=== PATIENT | female | born 1930 | race Caucasian/White ===

== ENCOUNTER 2016-04-24 14:36 | Observation (INO) | payer MEDICARE, OTHER ==
[2016-04-24 15:23] LABS: Urine Bilirubin Negative (NEGATIVE); Urine Blood 250 /ul (NEGATIVE); Urine Ketone Negative (NEGATIVE); Urine Protein 15 mg/dL (NEGATIVE); Urine Specific Gravity 1.025 SP.GR. (1.005-1.010); Urine Urobilinogen Normal (NORMAL)
[2016-04-24 15:36] LABS: Urine Appearance Clear; Urine Bacteria 2+; Urine Color Yellow; Urine Nitrite Positive (NEGATIVE); Urine WBC 0-5 /hpf (0-5)
[2016-04-24] MEDS ORDERED: NORMAL SALINE 1,000 ML IV PRN ×2 (17:41→21:37)
[2016-04-24] MEDS ORDERED: CLONIDINE HCL 0.1 MG TABLET PO ONE (17:43)
--- NOTE | 2016-04-24 17:43 | ERNOTE ---
Medical Problem HPI - Narrative Date of Service: 04/24/16 - General Chief Complaint: General Assessment Time Seen by Provider: 04/24/16 17:34 Source: patient, family, RN notes reviewed Exam Limitations: other - Altered Mental Status - Immun/Allergies/Home Medications Immunizations: IMMUNIZATION HX Immunizations Up to Date Yes History of Influenza Vaccine Yes Hx Pneumococcal Vaccination Yes Allergies/Adverse Reactions: Allergies orange juice Allergy (Mild, Verified 04/25/16 03:20) Hives Sulfa (Sulfonamide Antibiotics) Allergy (Verified 04/25/16 03:20) acetaminophen [From Tylenol] Adverse Reaction (Verified 04/25/16 03:20) Home Medications: HOME MEDICATIONS Bumetanide [Bumex] 1 mg PO DAILY PRN 04/24/16 [Last Taken Unknown] DULoxetine HCL [Cymbalta] 20 mg PO DAILY 04/24/16 [Last Taken Unknown] Levothyroxine Sodium [Synthroid] 150 mcg PO DAILY 04/24/16 [Last Taken Unknown] Losartan/Hydrochlorothiazide [Hyzaar 50-12.5 Tablet] 1 each PO DAILY 04/24/16 [ Last Taken Unknown] Tramadol HCl [Rybix Odt] 50 mg PO Q6H PRN 04/24/16 [Last Taken Unknown] - History of Present History Narrative: Patient was reported with Altered Mental Status, confusion and not able to communicate since at least 24hrs. Patient was reported with elevated blood pressure. Patient also reported a lower abdominal pain. Timing: constant, getting worse Severity: moderate Modifying Factors - (Improves): Present: other - Nothing Modifying Factors - (Worsens): Present: other - Nothing Review of Systems - Review of Systems Constitutional: Present: weakness, decreased activity level, other - Confusion EYE: Present: no symptoms reported ENT: Present: no symptoms reported Respiratory: Absent: cough Cardiology: Present: no symptoms reported Gastrointestinal/Abdominal: Present: abdominal pain Genitourinary: Present: frequency, hematuria Musculoskeletal: Present: muscle pain Skin: Present: no symptoms reported. Absent: rash Neurological: Present: weakness, other - Altered Mental Status - Patient's Past Medical History Patient History - Medical: Hypothyroidism Patient History - Cancer: No Hx of Cancer Patient History - Surgical Procedures: Tubal Ligation, Other - Social History Smoking Status: Never smoker Have you smoked in the past 12 months: No Do you dip or chew tobacco: No Alcohol Use: none Drug Use: none Physical Exam - Physical Exam General Appearance: Present: wd/wn, alert, no apparent distress Eye Exam: Normal inspection: bilateral, PERRL: bilateral, EOMI: bilateral Ears, Nose, Throat: Present: normal ENT inspection, hearing grossly normal, normal pharynx Neck: Present: normal inspection, nontender Respiratory: Present: no respiratory distress, normal breath sounds, no accessory muscle use, chest nontender, lungs clear Cardiovascular/Chest: Present: regular rate, rhythm, normal peripheral pulses, systolic murmur Gastrointestinal/Abdominal: Present: normal bowel sounds, nontender, nondistended, soft, no organomegaly. 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 Absent: disoriented to person, disoriented to place, disoriented to situation Skin Exam: Present: normal color, warm/dry. Absent: jaundice, skin rash Lymphatic Exam: Present: no adenopathy ED Progress - Date and Time Seen: Date and Time: 04/24/16 19:15 Patient who was reported with AMS, Abd. Pain, Hematuria, and was found with elevated WBC and +UA for UTI. Patient has been given antibiotics and is pending for reports of CT. Case will be consulted to Hospitalist. 04/24/16 19:36 GCS: 15/15 Patient is with family now is more alert and oriented. Patient now knows were she is and is more aware of her environment and events. Family agreed that patient was altered and confused. Patient was informed that she has a UTI and Tx with antibiotics and hydration is needed. Patient BP has been managed at the moment. - Results and Orders Patient's Lab Results:: I have reviewed the patient's lab results. Results and Orders: Patient found with elevated WBC and +UA for bacteria - Vital Signs Patient's Vital Signs:: I have reviewed the patient's vital signs. Vital Signs: Vital Signs 04/24/16 14:58 Temperature 35.7 C L Pulse Rate 93 Respiratory 14 Rate Blood Pressure 199/123 O2 Sat by Pulse 97 Oximetry - EKG EKG: NSR, no ST T wave changes EKG read: Interp. by me EKG Comments: HR: 88, No ST Elevations, LAD, RBBB incomplete - X-Ray X-Ray #1 X-Ray: chest Interpretation: Interp. by me X-ray Comments: No infiltrates and no consolidates seen on film. - CT/Ultrasound CT/Ultrasound Narrative: Time: 19:14: No blood, no shifting pending radiologist report Final Radiology Report was noticed. No acute intra cranial processes were reported. - Progress/Reassessment Chief Complaint: General Assessment Departure - Departure Clinical Impression: SIRS (systemic inflammatory response syndrome), Altered level of consciousness UTI (urinary tract infection) Qualifiers: Urinary tract infection type: acute cystitis Hematuria presence: with hematuria Qualified Code(s): N30.01 - Acute cystitis with hematuria Disposition: [facility] Condition: Fair
[2016-04-24 17:56] LABS: Hematocrit 45.5 % (37.0-47.0); Hemoglobin 15.3 gm/dL (12.5-16.0); Mean Cell Volume 90.5 fl (78-100); Mean Corpuscular Hemoglobin 30.4 pg (27-31); Mean Corpuscular Hgb Conc 33.6 g/dl (32-36); Mean Platelet Volume 10.3 fl (6.0-9.5); Neutrophil # 11.1 K/mm3 (1.3-6.0); Platelet Count 228 K/mm3 (150-450); Red Blood Count 5.03 M/mm3 (4.2-5.4); Red Cell Distribution Width 13.8 % (11.5-14.0)
[2016-04-24 18:12] LABS: ALT 30 U/L (19-67); AST 27 U/L (0-48); Albumin * 3.2 gm/dl (3.4-5.0); Alkaline Phosphatase * 78 U/L (50-170); Anion Gap 13.6 mmol/L (6.8-13.8); BUN/Creatinine Ratio 15.6 (9.0-21.6); Bilirubin, Total 0.4 mg/dL (0.0-1.1); Blood Urea Nitrogen 24 mg/dL (3-23); Ca. Corrected For Albumin 9.9 mg/dL (8.4-10.2); Calcium * 9.6 mg/dL (7.9-10.9); Carbon Dioxide 25.7 mmol/L (24-32.6); Chloride 104 mmol/L (97-106); Glucose * 129 mg/dL (70-110); Potassium 4.3 mmol/L (3.4-4.6); Sodium 139 mmol/L (132-142); Total Protein 8.2 gm/dL (6.2-8.2); Troponin I Less than 0.017 ng/ml (0.00-0.10)
[2016-04-24] MEDS ORDERED: CLONIDINE HCL 0.1 MG TABLET ONE (18:35)
[2016-04-24] MEDS ORDERED: NORMAL SALINE 1,000 ML IV ONE (20:15)
--- NOTE | 2016-04-24 21:57 | HP ---
Chief Complaint - Chief Complaint Date of Service: 04/24/16 Time of Service: 21:49 Chief Complaint: "Abdominal Pain, Back pain, Blood in Urine". Source of HPI- Pt ; unreliable, ER provider report. History of Present Illness: Mrs. Chaudhari is a 86-yr-old WF pt who normally sees KAROLINE Vieira in [place]. Pt does not appear to be a precise historian and she is unsure how she ended up in the hospital. Apparently pt 's spouse receives dialysis at the [facility] and he had an appointment today. Spouse is unable to drive and so the pt is the one who drove him down here for his appt. While her spouse was going through dialysis, pt felt the need to be checked out in the ER as she had not been Feeling well. She reported having abdominal pain, back pain and noting blood in urine yesterday. While awaiting further evaluation, she begun getting confused and her BP was noted to be elevated as well. The CXR obtained did not have any acute findings. However, the UA showed presence of UTI. The electrolyte labs showed mild dehydration with a BUN/Cr of 24/1.54. She will be admitted under observation status for UTI and dehydration. - Patient's Past Medical History Patient History - Medical: Hypothyroidism Patient History - Cancer: No Hx of Cancer Patient History - Surgical Procedures: Tubal Ligation, Other - Social History Smoking Status: Never smoker Have you smoked in the past 12 months: No Do you dip or chew tobacco: No Alcohol Use: none Drug Use: none Review Of Systems (GEN) - Review of Systems Additional Comments: ROS unobtainable due to AMS. Allergies/Adverse Reactions: Allergies Allergy/AdvReac Type Severity Reaction Status Date / Time orange juice Allergy Mild Hives Verified 04/25/16 03:20 Sulfa (Sulfonamide Allergy Verified 04/25/16 03:20 Antibiotics) acetaminophen [From Tylenol] AdvReac Verified 04/25/16 03:20 Home Medications: HOME MEDICATIONS Bumetanide [Bumex] 1 mg PO DAILY PRN 04/24/16 [Last Taken Unknown] DULoxetine HCL [Cymbalta] 20 mg PO DAILY 04/24/16 [Last Taken Unknown] Levothyroxine Sodium [Synthroid] 150 mcg PO DAILY 04/24/16 [Last Taken Unknown] Losartan/Hydrochlorothiazide [Hyzaar 50-12.5 Tablet] 1 each PO DAILY 04/24/16 [ Last Taken Unknown] Tramadol HCl [Rybix Odt] 50 mg PO Q6H PRN 04/24/16 [Last Taken Unknown] Exam - Exam Vital Signs: Vital Signs - Last Taken Temp 35.7 C L 04/24/16 14:58 Pulse 59 L 04/24/16 21:32 Resp 14 04/24/16 21:32 BP 113/55 04/24/16 21:32 Pulse Ox 94 04/24/16 21:32 Constitutional: Present: Alert, No distress, Elderly ENT Exam: Present: normal ENT inspection, hearing grossly normal, dry mucous membranes. Absent: nasal congestion, nasal drainage Eye Exam: bilateral eye: normal inspection, PERRL Neck: Present: full range of motion, supple, normal inspection Back Exam: Present: no CVA tenderness, no vertebral tenderness Breasts: Present: Exam deferred Respiratory: Present: lungs clear, no accessory muscle use, No wheezing Cardiovascular/Chest: Present: regular rate, rhythm, no murmur Abdomen: Present: Normal bowel sounds, soft, nontender /Rectal: Present: Exam deferred Extremity: Present: non-tender, normal inspection, no pedal edema Skin Exam: Present: warm/dry, no cyanosis Lymphatic: Present: no adenopathy Neurologic: Present: alert, normal mood/affect, other - Forgetfull.. Absent: abnormal gait, aphasia, facial droop Appearance: Present: appropriate appearance, impaired insight Eye contact: Present: cooperative, good eye contact, normal speech Thoughts: Present: normal thought pattern, no apparent hallucination Diagnostic Studies: Laboratory Results WBC 12.0 K/mm3 (4.0-10.5) H 04/24/16 17:53 RBC 5.03 M/mm3 (4.2-5.4) 04/24/16 17:53 Hgb 15.3 gm/dL (12.5-16.0) 04/24/16 17:53 Hct 45.5 % (37.0-47.0) 04/24/16 17:53 MCV 90.5 fl (78-100) 04/24/16 17:53 MCH 30.4 pg (27-31) 04/24/16 17:53 MCHC 33.6 g/dl (32-36) 04/24/16 17:53 RDW 13.8 % (11.5-14.0) 04/24/16 17:53 Plt Count 228 K/mm3 (150-450) 04/24/16 17:53 MPV 10.3 fl (6.0-9.5) H 04/24/16 17:53 Immature Gran % (Auto) 0.50 % (0.001-0.429) H 04/24/16 17:53 Immature Gran # (Auto) 0.06 K/mm3 (0.000-0.0310) H 04/24/16 17:53 Neutrophils % 92.0 % (42-75.0) H 04/24/16 17:53 Lymphocytes % 5.2 % (20-51) L 04/24/16 17:53 Monocytes % 1.7 % (0.0-9) 04/24/16 17:53 Eosinophils % 0.0 % (0.0-3.0) 04/24/16 17:53 Basophils % 0.6 % (0.0-1.0) 04/24/16 17:53 Nucleated RBC % 0.0 k/mm3 (0-1) 04/24/16 17:53 Neutrophils # 11.1 K/mm3 (1.3-6.0) H 04/24/16 17:53 Lymphocytes # 0.6 k/mm3 (1.5-3.5) L 04/24/16 17:53 Monocytes # 0.2 k/mm3 (0.0-1.0) 04/24/16 17:53 Eosinophils # 0.0 k/mm3 (0.0-0.7) 04/24/16 17:53 Absolute Basophils 0.1 k/mm3 (0.0-0.1) 04/24/16 17:53 Sodium 139 mmol/L (132-142) 04/24/16 17:53 Plasma Sodium 139 mmol/L (130-142) 04/24/16 17:53 Potassium 4.3 mmol/L (3.4-4.6) 04/24/16 17:53 Chloride 104 mmol/L (97-106) 04/24/16 17:53 Carbon Dioxide 25.7 mmol/L (24-32.6) 04/24/16 17:53 Anion Gap 13.6 mmol/L (6.8-13.8) 04/24/16 17:53 BUN 24 mg/dL (3-23) H 04/24/16 17:53 Creatinine 1.54 mg/dL (0.4-1.4) H 04/24/16 17:53 Est GFR (Non-Af Amer) 34 mL/min (60-130) L 04/24/16 17:53 BUN/Creatinine Ratio 15.6 (9.0-21.6) 04/24/16 17:53 Random Glucose 129 mg/dL (70-110) H 04/24/16 17:53 Lactic Acid, Venous 1.5 mmol/L (0.4-2.0) 04/24/16 17:53 Calcium 9.6 mg/dL (7.9-10.9) 04/24/16 17:53 Calcium Adj for Albumin 9.9 mg/dL (8.4-10.2) 04/24/16 17:53 Total Bilirubin 0.4 mg/dL (0.0-1.1) 04/24/16 17:53 AST 27 U/L (0-48) 04/24/16 17:53 ALT 30 U/L (19-67) 04/24/16 17:53 Alkaline Phosphatase 78 U/L (50-170) 04/24/16 17:53 Ammonia Less than 17.0 mcmol/L (11-35) 04/24/16 17:53 Troponin I Less than 0.017 ng/ml (0.00-0.10) 04/24/16 17:53 B-Natriuretic Peptide 287 pg/mL (5-550) 04/24/16 18:00 Total Protein 8.2 gm/dL (6.2-8.2) 04/24/16 17:53 Albumin 3.2 gm/dl (3.4-5.0) L 04/24/16 17:53 Urine Color Yellow 04/24/16 15:03 Urine Appearance Clear 04/24/16 15:03 Urine pH 6.0 pH (5.0-7.0) 04/24/16 15:03 Ur Specific [place] 1.025 SP.GR. (1.005-1.010) 04/24/16 15:03 Urine Protein 15 mg/dL (NEGATIVE) H 04/24/16 15:03 Urine Glucose (UA) Negative mg/dL (NEGATIVE) 04/24/16 15:03 Urine Ketones Negative mg/dL (NEGATIVE) 04/24/16 15:03 Urine Blood 250 /ul (NEGATIVE) H 04/24/16 15:03 Urine Nitrate Positive (NEGATIVE) H 04/24/16 15:03 Urine Bilirubin Negative mg/dl (NEGATIVE) 04/24/16 15:03 Prot Sulfosalicylic Acd Negative mg/dL (0) 04/24/16 15:03 Urine Urobilinogen Normal EU/dl (NORMAL) 04/24/16 15:03 Ur Leukocyte Esterase Negative /ul (NEGATIVE) 04/24/16 15:03 Urine RBC 10-25 /hpf (0-5) H 04/24/16 15:03 Urine WBC 0-5 /hpf (0-5) 04/24/16 15:03 Ur Epithelial Cells 5-10 /hpf (0-5) H 04/24/16 15:03 Urine Bacteria 2+ (NONE) H 04/24/16 15:03 Urine Culture Comments Culture to follow 04/24/16 15:03 Assessment/Plan - Assessment/Plan (1) Altered level of consciousness Assessment: Pt noted to have a bit of confusion and forgetfulness. Head CT negative for CVA. The CXR did not have any acute findings. Behaviour changes likely worsened by presence of UTI & Dehydration. Problem: Acute (2) UTI (urinary tract infection) Assessment: The UA showed presence of UTI, will cover with Rocephin and switch to appropriate antibiotics when culture results. Problem: Acute Qualifiers: Urinary tract infection type: acute cystitis Hematuria presence: with hematuria Qualified Code(s): N30.01 - Acute cystitis with hematuria (3) Dehydration Assessment: Noted with mild elevation of BUN/CR at 24/1.54. Will hydrate gently with IVF and recheck BMP in am. Problem: Acute (4) Hypertensive urgency Assessment: b/p 196/115 in ER. Received one time dose of clonidine in ER which lowered her BP to 80/40s and she was given IVF bolus. Remained stable the rest of the time. Problem: Acute
[2016-04-24] MEDS ORDERED: BUMETANIDE 1 MG TABLET PO PRN (23:00)
[2016-04-24] MEDS ORDERED: traMADol HCL 50 MG TABLET PO PRN (23:03)
[2016-04-25 05:36] LABS: Hematocrit 36.2 % (37.0-47.0); Hemoglobin 11.8 gm/dL (12.5-16.0); Mean Cell Volume 94.5 fl (78-100); Mean Corpuscular Hemoglobin 30.8 pg (27-31); Mean Corpuscular Hgb Conc 32.6 g/dl (32-36); Mean Platelet Volume 11.3 fl (6.0-9.5); Neutrophil # 6.6 K/mm3 (1.3-6.0); Neutrophil % 69.7 % (42-75.0); Platelet Count 160 K/mm3 (150-450); Red Blood Count 3.83 M/mm3 (4.2-5.4); Red Cell Distribution Width 14.1 % (11.5-14.0); White Blood Count 9.5 K/mm3 (4.0-10.5)
[2016-04-25 05:47] LABS: Anion Gap 11.4 mmol/L (6.8-13.8); BUN/Creatinine Ratio 18.3 (9.0-21.6); Calcium * 8.4 mg/dL (7.9-10.9); Carbon Dioxide 24.5 mmol/L (24-32.6); Estimated Creat Clear 26.5; Potassium 3.9 mmol/L (3.4-4.6)
[2016-04-25] MEDS ORDERED: LEVOTHYROXINE SODIUM 150 MCG TABLET PO SCH (07:00)
[2016-04-25] MEDS ORDERED: LOSARTAN PO SCH (09:00)
[2016-04-25] MEDS ORDERED: DULoxetine HCL 20 MG CAPSULE.SA PO SCH (09:00)
[2016-04-25] MEDS ORDERED: HYDROCHLOROTHIAZIDE PO SCH (09:00)
[2016-04-25] MEDS ORDERED: LOSARTAN POTASSIUM 50 MG TABLET PO SCH (09:00)
[2016-04-25] MEDS ORDERED: HYDROCHLOROTHIAZIDE 12.5 MG CAPSULE PO SCH (09:00)
--- NOTE | 2016-04-25 09:52 | DS ---
(1) Altered level of consciousness Problem: Resolved (2) Dehydration Problem: Resolved (3) UTI (urinary tract infection) Problem: Acute Qualifiers: Urinary tract infection type: acute cystitis Hematuria presence: with hematuria Qualified Code(s): N30.01 - Acute cystitis with hematuria Description of Stay: Date of admission: 04/24/16 Date of Discharge 04/25/2016 Hospital course: 86-yr-old WF pt who normally sees KAROLINE Vieira in [place]. Wasn't feeling well yesterday and decided to be seen in the ER while her was at dialysis at the [facility].She reported having abdominal pain, back pain and noting blood in urine. In ER she was observed to be confused and hypertensive. CXR obtained No acute cardiopulmonary findings. UA showed presence of UTI. The electrolyte labs showed mild dehydration with a BUN/Cr of 24/1.54. During this adm she was rehydrated with IVF and given IV antibiotics, pt tolerated well. She was seen today AOX3 no acute distress and anticipating DC home later today. Will Dc home with oral antibiotics and follow up with PCP 3-7 days. Plan of care discussed with pt she verbalized understanding and agree. Diagnostic Test CXR: No acute cardiopulmonary findings Urinalysis + UTI sensitivity pending Procedures Performed: none Results and Findings: Laboratory Tests 04/24/16 04/24/16 04/24/16 04/25/16 15:03 17:53 17:53 05:35 WBC 12.0 H 9.5 BUN 24 H 23 Creatinine 1.54 H 1.26 Est GFR (Non-Af Amer) 34 L 43 L D Urine Protein 15 H Urine Blood 250 H Urine Nitrate Positive H Ur Leukocyte Esterase Negative Urine RBC 10-25 H Urine WBC 0-5 Ur Epithelial Cells 5-10 H Urine Bacteria 2+ H Discharge Disposition: Home self care Disposition: Home self-care Condition: Stable Discharge Activity: Activity as tolerated Discharge Diet: General/regular food Referrals: [Primary Care Provider] - Prescriptions (Any new or edited meds): Levofloxacin [Levaquin] 250 mg PO DAILY #3 tablet Complete Home Medications List: Complete Home Medication List: Bumetanide [Bumex] 1 mg PO DAILY PRN 04/24/16 DULoxetine HCL [Cymbalta] 20 mg PO DAILY 04/24/16 Levothyroxine Sodium [Synthroid] 150 mcg PO DAILY 04/24/16 Losartan/Hydrochlorothiazide [Hyzaar 50-12.5 Tablet] 1 each PO DAILY 04/24/16 Tramadol HCl [Rybix Odt] 50 mg PO Q6H PRN 04/24/16 Levofloxacin [Levaquin] 250 mg PO DAILY #3 tablet 04/25/16
[2016-04-25] MEDS ORDERED: LEVOFLOXACIN 250 MG TABLET PO ONE (10:54)
[2016-04-25 12:11] VITALS: BP 142/85
== END 2016-04-25 14:19 | disposition home or self-care (01) ==
LOC: ER 14:36 → EDLOC 21:11 → UNDOADMOB 21:11 → MS 21:11 → UNDOADMOB 21:12 → MS 21:12 → UNDOADMOB 21:13
PROVIDERS: ADMIT Nurse Practitioner; ATTEND Internal Medicine
DX: N30.01 Acute cystitis with hematuria (principal); B96.20 Unspecified Escherichia coli [E. coli] as the cause of diseases classified elsewhere; E86.0 Dehydration; R40.4 Transient alteration of awareness
CPT/HCPCS: 36415; 70450; 71020; 80048; 80053; 81001; 82140; 83605; 83880; 84484; 85025; 87040; 87077; 87086; 87186; 93005; 96365; 99284; G0378